=== PATIENT | male | born 1990 | race Caucasian/White ===

== ENCOUNTER 2018-09-11 11:40 | Emergency (ER) | payer SELFPAY ==
[~2018-09-11] VITALS: Ht 167.6 cm; Wt 116.1 kg
[2018-09-11 12:08] VITALS: BP_SYST 147
[2018-09-11] MEDS ORDERED: chlorproMAZINE HCL 50 MG/ 2 ML AMP IM ONE ×3 (13:45→15:30)
[2018-09-11] MEDS ORDERED: NACL 0.9% 1,000 ML IV ONE (13:45)
[2018-09-11] MEDS ORDERED: DIPHENHYDRAMINE INJ 50 MG/ML VIAL IVP ONE (13:45)
--- NOTE | 2018-09-11 13:45 | NUR ---
Patient arrived via POV, AAOx4, patient ambulatory with steady gait. Patient has 3 day history of headache/migraine. He was seen at urgent care, and no relief was found. Patient states headache was the worst ever, he has been unable to sleep for several days related to pain. Patient notes x6 episodes of vomiting, nausea, and abdominal discomfort related to vomiting. Patient also notes stiff sensation in neck. Will continue to follow up and monitor.
--- NOTE | 2018-09-11 13:48 | NUR ---
Patient to ER bed 5 to gown for evaluation. Side rails up. Assumed care. Addendum: 09/11/18 at 1355 by [email or web address] Amended 1343 for time.
--- NOTE | 2018-09-11 13:50 | NUR ---
MARTIN Simeon examining patient.
--- NOTE | 2018-09-11 14:30 | NUR ---
Attempted x6 for IV access, JOSE Kang changed order to IM. Patient agrees.
[2018-09-11] MEDS ORDERED: DIPHENHYDRAMINE INJ 50 MG/ML VIAL IM ONE ×2 (14:45→16:45)
--- NOTE | 2018-09-11 14:46 | NUR ---
Patient given IM thorazine and benadryl for pain relief.
[2018-09-11] MEDS ORDERED: ACETAMINOPHEN 500 MG TABLET PO ONE (15:30)
--- NOTE | 2018-09-11 16:47 | NUR ---
Patient given written and verbal discharge instructions and verbalizes understanding. ER MD discussed with patient the results and treatment provided. Patient in stable condition. ID arm band removed. Rx of Excedrin given. Patient educated on pain management and to follow up with PMD. Pain Scale 4/10. Opportunity for questions provided and answered. Medication side effect fact sheet provided.
[2018-09-11 19:38] VITALS: BP_SYST 140
== END 2018-09-11 19:38 | disposition home or self-care (01) ==
LOC: SED 11:40
DX: R51 Headache (principal); R03.0 Elevated blood-pressure reading, without diagnosis of hypertension; J45.909 Unspecified asthma, uncomplicated
CPT/HCPCS: 70450; 96372; 99284; J1200; J3230